=== PATIENT | male | born 1950 | race Caucasian/White ===

== ENCOUNTER 2019-04-21 16:45 | Emergency (ER) | payer MEDICARE, BC ==
[2019-04-21] MEDS ORDERED: Phenylephrine 1% NASAL* 15 ML BOT BOTH NARES ONE ×2 (16:47→17:25)
--- NOTE | 2019-04-21 16:51 | UC ---
Epistaxis Nasal HPI - HPI Summary HPI Summary: 69 yo male presents with nosebleed. He tells me that he takes Xarelto daily for afib and wears a CPAP at bedtime. Early this morning around 0400 he woke with a nosebleed while wearing his CPAP. He was able to get the bleeding to stop with direct pressure for 10-15minutes. He felt fine and was asymptomatic all day until this evening. About 30min [employer] pt was running on the elliptical and his nose started to bleed again. He held direct pressure for 15minutes, but was unable to get it to stop bleeding - prompting his visit to . Currently he denies headache, dizziness, weakness, injury to the area. - History of Current Complaint Stated Complaint: EPISTAXIS Time Seen by Provider: 04/21/19 16:51 Hx Obtained From: Patient Onset/Duration: Sudden Onset Severity Currently: None - Allergies/Home Medications Allergies/Adverse Reactions: Allergies Allergy/AdvReac Type Severity Reaction Status Date / Time No Known Allergies Allergy Verified 04/21/19 16:52 Home Medications: Home Medications Atenolol TAB* [Tenormin TAB* 25 MG] 25 mg PO DAILY 04/21/19 [History Confirmed 04/21/19] Rivaroxaban TAB(*) [Xarelto 10 mg (*)] 10 mg PO DAILY 04/21/19 [History Confirmed 04/21/19] Valacyclovir HCl [Valtrex] 500 mg PO EVERY OTHER DAY 04/21/19 [History Confirmed 04/21/19] PMH/Surg Hx/FS Hx/Imm Hx Cardiovascular History: Hypertension, Atrial Fibrillation - Surgical History Surgical History: None - Family History Known Family History: Positive: Cardiac Disease - Social History Occupation: Retired Lives: With Family Alcohol Use: None Substance Use Type: None Smoking Status (MU): Never Smoked Tobacco Review of Systems All Other Systems Reviewed And Are Negative: No Constitutional: Positive: Negative Skin: Positive: Negative Eyes: Positive: Negative ENT: Positive: Epistaxis Respiratory: Positive: Negative Cardiovascular: Positive: Negative Neurological: Positive: Negative Psychological: Positive: Negative Physical Exam - Summary Physical Exam Summary: GENERAL: NAD. WDWN. No pain distress. SKIN: No rashes, sores, lesions, or open wounds. HEENT: Head: AT/NC Eyes: EOM intact. Conjunctiva clear without inflammation or discharge. Ears: Hearing grossly normal. TMs intact, no bulging, erythema, or edema. Nose: Nasal mucosa pink. Dried blood in right nare. NTTP maxillary and frontal sinus. Throat: Posterior oropharynx without exudates, erythema, or tonsillar enlargement. Uvula midline. NECK: Supple. Nontender. No lymphadenopathy. CHEST: CTAB. No accessory muscle use. Breathing comfortably and in no distress. CV: Pulses intact. Cap refill <2seconds NEURO: Alert. PSYCH: Age appropriate behavior. Triage Information Reviewed: Yes Vital Signs: Vital Signs: Temp Pulse Resp BP Pulse Ox 98.0 F 83 18 117/91 100 04/21/19 16:54 04/21/19 16:54 04/21/19 16:54 04/21/19 16:54 04/21/19 16:54 Vital Signs Reviewed: Yes Epistaxis Nasal Course/Dx - Course Course Of Treatment: Direct pressure was applied and 1 puff of Phenylephrine was administered in each nostril. Bleeding stopped within 10minutes. Advised to use the Phenylephrine 1 puff twice a day for the next 2 days. F/u with ENT if nosebleed continues to reoccur. - Differential Dx/Diagnosis Provider Diagnosis: Epistaxis Discharge ED - Sign-Out/Discharge Documenting (check all that apply): Patient Departure All imaging exams completed and their final reports reviewed: No Studies - Discharge Plan Condition: Stable Disposition: HOME Patient Education Materials: Nosebleed (ED) Referrals: Lashaun Santiago MD [Primary Care Provider] - Edmund Pierre MD [Medical Doctor] - If Needed Additional Instructions: If you develop a fever, shortness of breath, chest pain, new or worsening symptoms - please call your PCP or go to the ED immediately. 1) Use the nose spray 1-2 puffs in each nostril twice a day for 2 more days 2) Continue your medications as prescribed 3) May sleep with the head of the bed slightly elevated for the next 2-3 days to lower risk of bleeding 4) Blow your nose gently and avoid strenuous physical activity for the next 2-3 days 5) If your nosebleed continues to reoccur - I recommend that you call the Ear, Nose, and Throat doctor at the number below to schedule an appointment for further treatment. - Billing Disposition and Condition Condition: STABLE Disposition: Home - Attestation Statements Provider Attestation: Per institutional requirements, I have reviewed the chart, however, I was not consulted specifically or made aware of this patient by the midlevel provider. I did not personally evaluate, interact with , or disposition this patient.
[2019-04-21 16:56] VITALS: BP 117/91
== END 2019-04-21 17:40 | disposition home or self-care (01) ==
LOC: UCEAST 16:45
DX: R04.0 Epistaxis (principal); I48.91 Unspecified atrial fibrillation; I10 Essential (primary) hypertension; Z79.01 Long term (current) use of anticoagulants; Z79.899 Other long term (current) drug therapy
CPT/HCPCS: 99211; A9270-GY; G0463

== ENCOUNTER 2024-03-05 11:19 | Inpatient (IN) ==
[2024-03-05 14:30] LABS: Urine Appearance Clear; Urine Bilirubin Negative (Negative); Urine Blood Trace (Negative); Urine Color Yellow; Urine Glucose Negative (Negative); Urine Ketones 1+ (Negative); Urine Nitrite Negative (Negative); Urine Protein Trace (Negative); Urine Urobilinogen Negative (Negative); Urine pH 5.5 (5.0-8.0)
[2024-03-05] MEDS: Lactated Ringers 1000 ml BAG 1,000 ML IV ONE (14:43)
[2024-03-05 14:47] LABS: Hematocrit 42.8 % (38-53); Hemoglobin 14.7 g/dL (13.2-16.3); Mean Corpuscular Hemoglobin 33.6 pg (27-33); Mean Corpuscular Hgb Conc 34.4 g/dL (31-36); Mean Corpuscular Volume 97.9 fL (80-97); Mean Platelet Volume 8.7 fL (7.5-11.2); Platelet Count 162 10^3/uL (150-450); Red Blood Count 4.37 10^6/uL (4.06-5.63); Red Cell Distribution Width 12.9 % (12-17); White Blood Count 15.6 10^3/uL (3.6-10.2)
[2024-03-05 14:50] LABS: INR 2.38 (0.85-1.14)
[2024-03-05 15:21] LABS: ABS Basophils 0.1 10^3/uL (0.0-0.1); ABS Lymphocytes 1.8 10^3/uL (1.0-4.8); ABS Monocytes 1.3 10^3/uL (0.0-1.1); ABS Neutrophils 12.4 10^3/uL (1.5-7.6); Eosinophil % 0.1 %; Lymphocyte % 11.5 %
[2024-03-05 16:46] LABS: Albumin 3.7 g/dL (3.2-5.2); Albumin/Globulin Ratio 1.5 (1-3); C Reactive Protein 216.68 mg/L (<8.01); Calcium 9.1 mg/dL (8.6-10.3); Creatinine, Serum 1.12 mg/dL (0.67-1.17); Globulin 2.4 g/dL (2-4); Potassium 4.3 mmol/L (3.5-5.0); Total Bilirubin 1.6 mg/dL (0.2-1.0); Total Protein 6.1 g/dL (6.4-8.9); eGFR CKD-EPI 68.5 (>60)
[2024-03-05] MEDS: Iohexol 350 (CONTRAST) 500 ML MDV IV ONE (17:17)
[2024-03-05] MEDS: Piperacillin/Tazobac 3.375 BAG 3.375 GM/100 ML BAG IV ONE (18:58)
[2024-03-05] MEDS ORDERED: Lactated Ringers 1000 ml BAG 1,000 ML IV SCH (20:00)
[2024-03-05] MEDS ORDERED: Zosyn per Pharmacy NOTE FOLLOW UP SCH (20:00)
[2024-03-05] MEDS ORDERED: Heparin 5000 UNITS/ML 1 mL VIAL IV SCH (20:00)
[2024-03-05 20:39] LABS: ABS Lymphocytes 1.1 10^3/uL (1.0-4.8); ABS Monocytes 1.3 10^3/uL (0.0-1.1); ABS Neutrophils 12.8 10^3/uL (1.5-7.6); Eosinophil % 0.1 %; Hematocrit 40.5 % (38-53); Hemoglobin 14.1 g/dL (13.2-16.3); Lymphocyte % 7.5 %; Mean Corpuscular Hemoglobin 34.2 pg (27-33); Mean Corpuscular Hgb Conc 34.9 g/dL (31-36); Mean Platelet Volume 8.7 fL (7.5-11.2); Platelet Count 159 10^3/uL (150-450); Red Blood Count 4.13 10^6/uL (4.06-5.63); Red Cell Distribution Width 12.9 % (12-17); White Blood Count 15.3 10^3/uL (3.6-10.2)
[2024-03-05] MEDS: Heparin DRIP 25,000 UNITS BAG 25,000 UNITS/250 ML BAG IV SCH (21:09)
[2024-03-05] MEDS: NS 0.9% 1000 ml BAG 1,000 ML IV SCH (21:11)
[2024-03-05 21:12] LABS: Creatinine, Serum 1.08 mg/dL (0.67-1.17); eGFR CKD-EPI 71.6 (>60)
[2024-03-05] MEDS: ZOSYN 3.375 GM Q8H per EXTENDED INFUSION IV SCH (22:11)
[2024-03-06 05:06] LABS: ABS Lymphocytes 0.9 10^3/uL (1.0-4.8); ABS Monocytes 1.1 10^3/uL (0.0-1.1); ABS Neutrophils 11.3 10^3/uL (1.5-7.6); ABS Nucleated RBC 0.01 10^3/ul; Eosinophil % 0.1 %; Hematocrit 37.1 % (38-53); Hemoglobin 13.1 g/dL (13.2-16.3); Lymphocyte % 6.8 %; Mean Corpuscular Hemoglobin 34.5 pg (27-33); Mean Corpuscular Hgb Conc 35.2 g/dL (31-36); Platelet Count 146 10^3/uL (150-450); Red Blood Count 3.78 10^6/uL (4.06-5.63); Red Cell Distribution Width 12.7 % (12-17); White Blood Count 13.3 10^3/uL (3.6-10.2)
[2024-03-06 05:36] LABS: Albumin/Globulin Ratio 1.4 (1-3); Calcium 7.7 mg/dL (8.6-10.3); Creatinine, Serum 0.99 mg/dL (0.67-1.17); Globulin 2.2 g/dL (2-4); Magnesium 1.7 mg/dL (1.9-2.7); Phosphorus 2.4 mg/dL (2.5-5.0); Potassium 4.2 mmol/L (3.5-5.0); Total Bilirubin 1.3 mg/dL (0.2-1.0); Total Protein 5.2 g/dL (6.4-8.9); eGFR CKD-EPI 79.4 (>60)
[2024-03-06] MEDS: Magnesium Sulfate 2 gm BAG 2 GM/50 ML BAG IVPB ONE (10:44)
[2024-03-06 11:24] LABS: INR 1.74 (0.85-1.14)
[2024-03-06] MEDS: NS 0.9% 1000 ml BAG 1,000 ML IV SCH (20:50)
[2024-03-07 06:34] LABS: ABS Basophils 0.1 10^3/uL (0.0-0.1); ABS Lymphocytes 1.6 10^3/uL (1.0-4.8); ABS Monocytes 0.8 10^3/uL (0.0-1.1); ABS Neutrophils 6.1 10^3/uL (1.5-7.6); ABS Nucleated RBC 0.01 10^3/ul; Eosinophil % 0.2 %; Hematocrit 34.5 % (38-53); Hemoglobin 12.2 g/dL (13.2-16.3); Lymphocyte % 18.7 %; Mean Corpuscular Hemoglobin 34.4 pg (27-33); Mean Corpuscular Hgb Conc 35.5 g/dL (31-36); Mean Corpuscular Volume 96.8 fL (80-97); Mean Platelet Volume 8.8 fL (7.5-11.2); Nucleated Red Blood Cells % 0.1 %/100WBC (0.0-0.8); Platelet Count 164 10^3/uL (150-450); Red Blood Count 3.56 10^6/uL (4.06-5.63); Red Cell Distribution Width 12.3 % (12-17); White Blood Count 8.6 10^3/uL (3.6-10.2)
[2024-03-07 06:54] LABS: Creatinine, Serum 0.93 mg/dL (0.67-1.17); eGFR CKD-EPI 85.6 (>60)
[2024-03-07] MEDS: fentaNYL 100 mcg/2 ml 50 MCG/ML VIAL ONE (13:30)
[2024-03-08 05:52] LABS: ABS Eosinophils 0.1 10^3/uL (0.0-0.5); ABS Lymphocytes 1.5 10^3/uL (1.0-4.8); ABS Monocytes 0.5 10^3/uL (0.0-1.1); ABS Neutrophils 3.4 10^3/uL (1.5-7.6); ABS Nucleated RBC 0.01 10^3/ul; Eosinophil % 1.3 %; Hematocrit 34.5 % (38-53); Hemoglobin 12.3 g/dL (13.2-16.3); Mean Corpuscular Hemoglobin 34.7 pg (27-33); Mean Corpuscular Hgb Conc 35.5 g/dL (31-36); Mean Corpuscular Volume 97.6 fL (80-97); Mean Platelet Volume 8.6 fL (7.5-11.2); Nucleated Red Blood Cells % 0.1 %/100WBC (0.0-0.8); Platelet Count 171 10^3/uL (150-450); Red Blood Count 3.53 10^6/uL (4.06-5.63); Red Cell Distribution Width 12.7 % (12-17); White Blood Count 5.5 10^3/uL (3.6-10.2)
[2024-03-08 06:25] LABS: Creatinine, Serum 0.92 mg/dL (0.67-1.17); Phosphorus 2.4 mg/dL (2.5-5.0); eGFR CKD-EPI 86.7 (>60)
[2024-03-08] MEDS: NS 0.9% 500 ml BAG 500 ML IV ONE (06:31)
[2024-03-09 05:43] LABS: ABS Eosinophils 0.1 10^3/uL (0.0-0.5); ABS Lymphocytes 1.8 10^3/uL (1.0-4.8); ABS Monocytes 0.4 10^3/uL (0.0-1.1); ABS Neutrophils 3.4 10^3/uL (1.5-7.6); Eosinophil % 1.8 %; Hematocrit 34.3 % (38-53); Hemoglobin 12.2 g/dL (13.2-16.3); Lymphocyte % 31.8 %; Mean Corpuscular Hemoglobin 34.8 pg (27-33); Mean Corpuscular Hgb Conc 35.7 g/dL (31-36); Mean Corpuscular Volume 97.3 fL (80-97); Mean Platelet Volume 8.5 fL (7.5-11.2); Platelet Count 203 10^3/uL (150-450); Red Blood Count 3.52 10^6/uL (4.06-5.63); Red Cell Distribution Width 12.8 % (12-17); White Blood Count 5.7 10^3/uL (3.6-10.2)
[2024-03-09 05:59] LABS: Albumin 2.8 g/dL (3.2-5.2); Albumin/Globulin Ratio 1.3 (1-3); Calcium 8.2 mg/dL (8.6-10.3); Creatinine, Serum 0.88 mg/dL (0.67-1.17); Globulin 2.2 g/dL (2-4); Magnesium 1.9 mg/dL (1.9-2.7); Potassium 4.2 mmol/L (3.5-5.0); Total Bilirubin 0.3 mg/dL (0.2-1.0); eGFR CKD-EPI 89.7 (>60)
[2024-03-09 09:56] VITALS: BP 91/71
[2024-03-10 10:03] LABS: Glucose, BF 3 mg/dL
[2024-03-10 10:39] LABS: Lactate Dehydrogenase, BF 487 U/L
[2024-03-10 11:09] LABS: Albumin, BF 1.5 g/dL; Fluid Type, Albumin ABDOMINAL ABSCESS
== END 2024-03-09 10:30 | disposition home or self-care (01) | DRG 871 ==
LOC: ED 11:19 → EDHOLD 11:19 → OBSVTOIN 19:02 → SUATTDRO 19:02 → INTOOBSV 19:02 → MEDTELE 03-06 17:10
PROVIDERS: ADMIT Hospitalist; ATTEND Hospitalist